=== PATIENT | female | born 1960 | race Caucasian/White ===

== ENCOUNTER → 2017-05-11 | Outpatient (CLI) | payer OTHER ==
[~2017-05-11] VITALS: Ht 162.6 cm; Wt 83.0 kg
[~2017-05-11] MED LIST: ACETAMINOPHEN-1 EAC1 PO; ACTOS 30 MG TAB30 MG PO; AMBIEN 10 MG TA10 MG PO; ASPIR 8181 MG PO; ATIVAN0.5 MG PO; AUGMENTIN 875875 MG PO; BUSPIRONE HCL10 MG PO; CALCIUM + D SO1 EACH PO; CALCIUM CALTRATE PO; CELEBREX 200 M200 MG PO; CLONAZEPAM 0.50.5 M1; CLOZAPINE25 MG PO; COUMADIN 2.5MG2.5 M1 PO; CYMBALTA30 MG PO; DESYREL PO; DESYREL50 MG PO; DOLOPHINE HCL10 MG PO; ENOXAPARIN30 MG/0.3 SQ; FAZACLO PO; FLEXERIL PO; FLOMAX0.4 MG PO; GAVILAX17 GM PO; HYDROCODON-ACE1 EAC5 PO; HYDROCODON-ACE1 EACH PO; HYDROCODONE-AP1 EAC6 PO; INVEGA3 MG PO; LAMOTRIGINE100 MG PO; LASIX 40 MG TAB40 M1 PO; LASIX 40 MG TAB40 MG PO; LEVOTHYROXINE0.2 M1; LIDODERM 5%1 PATCH TOP; LISINOPRIL5 MG PO; METHADONE HCL 110 M1 PO; METHADOSE10 MG PO; NEURONTIN 300300 M1 PO; OMEPRAZOLE 20 M20 M1 PO; OXYCODONE-ACET1 EAC2 PO; PAXIL10 MG PO; PERCOCET 10-321 EACH PO; POTASSIUM20 PO; SENOKOT-S TABL1 EACH PO; TOPROL XL25 MG PO; TRAMADOL 50 MG50 MG PO; TYLENOL325 MG PO; ZOCOR 20 MG TAB20 M1 PO; ZOCOR20 MG PO
--- NOTE | ~2017-05-11 | HPC ---
[facility] [place] [address] PAIN MANAGEMENT CONSULTATION Name: SHEKHAR MAGANA Room #: [facility].#: [id number] Admission: 05/11/17 Attend Phys: Edwardo Hunter MD Discharge: Date of : 64 Report #: [id number] THIS REPORT FOR: //name// CC: Edwardo Gray MD DATE OF SERVICE: 05/11/2017 PRIMARY PHYSICIAN: Pat Gray MD; and Drooteo Galicia MD FOLLOWUP COMPLAINT: Was having some pain. CHIEF COMPLAINT: Low back pain and bilateral leg and foot pain. HISTORY OF PRESENT ILLNESS: The patient is a 56-year-old female who has been seen in the pain clinic in the past because of chronic lumbar radicular pain. She was treated with opioid medications in the past. Methadone was used. She found that this medication was effective. She then had a gastric bypass surgery. She has lost a considerable amount of weight since then. She states that she is now in a fpc type setting. She finds that she still has some pain and discomfort and finds ambulation somewhat problematic. She has times when she finds that her pain is problematic and rates it as a 10/10. Notes that the pain is worse with standing, walking as well as with change in weather conditions. PHYSICAL EXAMINATION: The patient is sitting in wheelchair. Weight 83 kilograms. BMI is 34, height 162 cm. IMPRESSION: 1. Chronic low back pain history, improved with use of Tylenol No. 3. 2. Obesity, improved after gastric bypass. The patient states that she is having some problems with the wound healing under the pannus of her abdominal. 3. Some problems with nausea. 4. History of depression and was seen by psychiatrist/psychologist in the past. RECOMMENDATION: A script for Tylenol No. 3 has been rewritten. The patient can take one tablet p.o. q. 4-6 hours p.r.n. pain. We would like to thank you for letting us participate in her care. We hope she continues to do well and improve. <ELECTRONICALLY SIGNED> By: Edwardo Hunter MD 05/12/17 0820 1227 03 Edwardo Hunter MD /nt
[2017-05-11 10:47] VITALS: BP 113/76
== END | disposition home or self-care (01) ==
LOC: PAIN 06:47
DX: M54.16 Radiculopathy, lumbar region (principal); E66.9 Obesity, unspecified; F32.9 Major depressive disorder, single episode, unspecified; Z98.84 Bariatric surgery status; Z68.34 Body mass index [BMI] 34.0-34.9, adult